=== PATIENT | female | born 1970 | race Two or more races ===

== ENCOUNTER 2023-02-11 13:44 | Emergency (ER) | payer SELFPAY ==
[~2023-02-11] VITALS: Ht 157.5 cm; Wt 75.9 kg
[2023-02-11 15:33] VITALS: BP 135/76
[2023-02-11] MEDS ORDERED: ACETAMINOPHEN 500 MG TAB PO ONE (16:15)
[2023-02-11] MEDS ORDERED: IBUP600T28 PO (17:26)
== END 2023-02-11 17:45 | disposition home or self-care (01) ==
LOC: ER 13:44
DX: S93.401A Sprain of unspecified ligament of right ankle, initial encounter (principal); W01.0XXA Fall on same level from slipping, tripping and stumbling without subsequent striking against object, initial encounter; Y93.89 Activity, other specified; Y92.89 Other specified places as the place of occurrence of the external cause; Y99.8 Other external cause status
CPT/HCPCS: 29515; 73610; 93971

== ENCOUNTER 2023-02-20 11:28 | Emergency (ER) | payer SELFPAY ==
[~2023-02-20 11:28] MED LIST: IBUP1TAB5 PO
== END 2023-02-20 11:43 | disposition left against medical advice (07) ==
LOC: ER 11:28
DX: M79.671 Pain in right foot (principal); Z53.21 Procedure and treatment not carried out due to patient leaving prior to being seen by health care provider